=== PATIENT | female | born 1980 | race Caucasian/White ===

== ENCOUNTER → 2018-10-21 | Outpatient (CLI) | payer BC ==
[~2018-10-21] VITALS: Wt 99.1 kg
[2018-10-21 10:41] VITALS: BP 141/14
[2018-10-21 10:53] VITALS: BP 141/14
== END ==
LOC: AMSURD 09:28
DX: G43.909 Migraine, unspecified, not intractable, without status migrainosus (principal)
CPT/HCPCS: J1200; J1885; J2405; J7030